=== PATIENT | female | born 1935 | race Caucasian/White ===

== ENCOUNTER 2019-11-14 13:32 | Outpatient (CLI) | payer MEDICARE, OTHER | END 2019-11-14 13:33 | disposition critical access hospital (66) | LOC: EMS 13:32 | PROVIDERS: ATTEND Surgery | DX: R41.82 Altered mental status, unspecified (principal); R51 Headache; W06.XXXA Fall from bed, initial encounter; Z91.81 History of falling; Y92.003 Bedroom of unspecified non-institutional (private) residence as the place of occurrence of the external cause; Z79.02 Long term (current) use of antithrombotics/antiplatelets | CPT/HCPCS: A0425; A0429 ==

== ENCOUNTER 2019-11-14 14:04 | Emergency (ER) | payer MEDICARE, OTHER ==
[2019-11-14] MEDS ORDERED: ACETAMINOPHEN 325 MG TABLET PO STA (14:26)
--- NOTE | 2019-11-14 14:27 | ED Physician Documentation ---
PD HPI MAJOR TRAUMA - Stated complaint Stated Complaint: FALL - Chief complaint Chief Complaint: Trauma Hd/Nk - History obtained from History obtained from: Patient, Family (daughter), EMS - History of Present Illness Mechanism of injury: Fell Timing - onset: Today (pt fell OOB at approx 0330 am, hit her ehad family got her back into bed today noticed a change in MS compared to yestreday pt c/o JAVIER neck pain abd pain and back. she is able to answer questions. pt family told EMS that she has had a decline in mental status past 2 weeks, pt recently moved in with family from [place]. pt state she has to urinate but is unable to) Injury(ies) location: Neck, Back, Left Lower Extremity (both feet but with bruising dorsum left foot more than right.). No: Head Associated symptoms: Seizures, Weakness (generalized for 2 weeks, with some falls. She says lost balance and felt onset of falling when getting up to bathroom. Fell backward. Does remember it.). No: LOC, AMS, Paresthesias Contributing factors: Anticoagulated (Plavix). No: Intoxicated Similar symptoms before: No diagnosis (daughter says some confusion and general weakness. No focal weakness.) Recently seen: Clinic (2 1/2 weeks ago at PMD visit; had new med started, escitalopram.) Review of Systems Constitutional: denies: Fever, Chills, Myalgias Nose: denies: Rhinorrhea / runny nose, Congestion Throat: denies: Sore throat Respiratory: denies: Cough GI: denies: Abdominal Pain, Nausea, Vomiting, Diarrhea Skin: denies: Abrasion (s), Laceration (s) PD PAST MEDICAL HISTORY - Past Medical History Past Medical History: Yes Cardiovascular: Hypertension, Coronary artery disease Neuro: TIA GI: Diverticulitis - Past Surgical History Past Surgical History: No - Present Medications Home Medications: Ambulatory Orders Medication Instructions Recorded Confirmed Amlodipine Besylate [Norvasc] 10 mg PO DAILY 11/14/19 11/14/19 Atorvastatin Calcium 20 mg PO DAILY PM 11/14/19 11/14/19 Cephalexin [Keflex] 500 mg PO TID #15 capsule 11/14/19 Clopidogrel [Plavix] 75 mg PO DAILY 11/14/19 11/14/19 Escitalopram [Lexapro] 10 mg PO DAILY 11/14/19 11/14/19 Lisinopril [Zestril] 10 mg PO DAILY 11/14/19 11/14/19 Metoprolol Tartrate [Lopressor] 50 mg PO BID 11/14/19 11/14/19 Nitroglycerin [Nitrostat] 0.4 mg SL Q5MIN PRN MDD x3 11/14/19 11/14/19 Nystatin Cream [Mycostatin Cream] 1 applic TOP BID #15 g 11/14/19 - Allergies Allergies/Adverse Reactions: Allergies Allergy/AdvReac Type Severity Reaction Status Date / Time ciprofloxacin [From Cipro] Allergy Rash Verified 11/14/19 15:05 codeine Allergy Unknown Verified 11/14/19 15:05 diazepam [From Valium] Allergy Nausea Verified 11/14/19 15:05 erythromycin base Allergy Unknown Verified 11/14/19 15:05 lentils Allergy Unknown Verified 11/14/19 15:05 Penicillins Allergy Unknown Verified 11/14/19 14:42 antibiotics Allergy Unknown Uncoded 11/14/19 15:05 antihistamines Allergy Unknown Uncoded 11/14/19 15:05 - Social History Does the pt smoke?: No Smoking Status: Never smoker Does the pt drink ETOH?: No Does the pt have substance abuse?: No - POLST Patient has POLST: Yes PD ED PE NORMAL - Vitals Vital signs reviewed: Yes - General General: Alert and oriented X 3, No acute distress, Well developed/nourished - HEENT HEENT: Atraumatic, Moist mucous membranes, Pharynx benign - Neck Neck: Supple, no meningeal sign, No adenopathy, Other (tender at upper thoracic spine paralumbar. ) - Cardiac Cardiac: RRR, No murmur - Respiratory Respiratory: No respiratory distress, Clear bilaterally, Other (no chestwall tnerdesss) - Abdomen Abdomen: Normal bowel sounds, Soft, Non tender, Non distended - Female Female : Deferred - Rectal Rectal: Deferred - Back Back: No CVA TTP - Derm Derm: Normal color, Warm and dry, Other (crural skin with demarcated reddened rash in inguinal and perrectal skin folds. No skin breakdown. Appearance c/w candidal yeast. ) - Extremities Extremities: Other (dorsum of left foot mostly showed some swelling and tenderness. Swelling is green/purple colored. ) - Neuro Neuro: Alert and oriented X 3, No motor deficit, No sensory deficit, Normal speech Results - Vitals Vitals: Vital Signs - 24 hr 11/14/19 11/14/19 11/14/19 14:04 15:07 15:30 Temperature 36.5 C Heart Rate 54 L 54 L 49 L Respiratory 16 14 15 Rate Blood Pressure 155/75 H 141/64 H 153/62 H O2 Saturation 98 100 98 11/14/19 11/14/19 11/14/19 16:00 16:30 17:00 Temperature Heart Rate 47 L 58 L 49 L Respiratory 17 16 18 Rate Blood Pressure 142/81 H 106/84 H 146/64 H O2 Saturation 99 98 100 Oxygen O2 Source Room air - Labs Labs: Laboratory Tests 11/14/19 11/14/19 11/14/19 14:15 14:15 16:37 WBC 8.7 RBC 5.37 Hgb 15.0 Hct 46.3 MCV 86.2 MCH 27.9 MCHC 32.4 RDW 13.7 Plt Count 264 MPV 9.4 Neut # (Auto) 5.8 Lymph # (Auto) 2.0 [place] # (Auto) 0.8 Eos # (Auto) 0.1 Baso # (Auto) 0.0 Absolute Nucleated RBC 0.00 Nucleated RBC % 0.0 Sodium 139 Potassium 4.2 Chloride 104 Carbon Dioxide 26 Anion Gap 9.0 BUN 22 H Creatinine 1.0 Estimated GFR (MDRD) 53 L Glucose 119 H Calcium 9.6 Total Bilirubin 1.1 H AST 26 ALT 25 Alkaline Phosphatase 96 Total Protein 7.8 Albumin 3.8 Globulin 4.0 Albumin/Globulin Ratio 1.0 Lipase 71 H Urine Color YELLOW Urine Clarity CLOUDY Urine pH 5.5 Ur Specific [place] 1.025 Urine Protein NEGATIVE Urine Glucose (UA) NEGATIVE Urine Ketones NEGATIVE Urine Occult Blood NEGATIVE Urine Nitrite POSITIVE H Urine Bilirubin NEGATIVE Urine Urobilinogen 0.2 (NORMAL) Ur Leukocyte Esterase TRACE H Urine RBC 0-5 Urine WBC 11-25 H Ur Squamous Epith Cells FEW Squamous Urine Bacteria Many H Ur Microscopic Review INDICATED Urine Culture Comments INDICATED - Rads (name of study) head CT Radiology: Prelim report reviewed (no acute bleeding), See rad report neck CT Radiology: Prelim report reviewed (prior superior endplate compression fx T1.), See rad report trunk CT Radiology: Prelim report reviewed (no acute processes.), See rad report feet xrays Radiology: Prelim report reviewed, Discussed with rads, EMP read contemporaneously, See rad report PD MEDICAL DECISION MAKING - ED course Complexity details: reviewed results (no noted acute fractures. She can move and turn okay.), considered differential (had onset of balance issues and falling more the past 2 weeks, which times with onset new Rx. ), d/w patient, d/w family (daughter) Departure - Departure Disposition: 01 Home, Self Care Clinical Impression: Medication side effect, Tinea cruris Fall from slip, trip, or stumble Qualifiers: Encounter type: initial encounter Qualified Code(s): W01.0XXA - Fall on same level from slipping, tripping and stumbling without subsequent striking against object, initial encounter UTI (urinary tract infection) Qualifiers: Urinary tract infection type: acute cystitis Hematuria presence: without hematuria Qualified Code(s): N30.00 - Acute cystitis without hematuria Condition: Stable Record reviewed to determine appropriate education?: Yes Instructions: ED UTI Cystitis Female Follow-Up: Isela Felipe ARNP [Primary Care Provider] - Prescriptions: Cephalexin [Keflex] 500 mg PO TID #15 capsule Nystatin Cream [Mycostatin Cream] 1 applic TOP BID #15 g Comments: Stay well-hydrated. There is signs of some urinary tract infection so we can go with cephalexin 3 times a day for 5 days. For the rash in the groin area, use nystatin antifungal cream twice daily and apply some A&E ointment over it. That should help clear that up. Regarding the altered mentation and weakness, I am inclined to think it is the S-Citalopram that she is just started. I would discontinue that and see how much improvement there is. You could also make an argument for stopping the atorvastatin cholesterol medicine as sometimes I will have some cognitive impact as well. Follow-up with your primary care if not improved over the next few days. For your pains from falling, I would suggest Tylenol 500 mg 4 times a day for the next 4 to 5 days just regularly and then to as needed. Discharge Date/Time: 11/14/19 17:37
[2019-11-14 14:38] LABS: BASOPHILS % (AUTO) 0.5 %; EOSINOPHILS # (AUTO) 0.1 10^3/uL (0.0-0.7); EOSINOPHILS % (AUTO) 0.7 %; LYMPHOCYTES % (AUTO) 22.8 %; MEAN CORPUSCULAR HEMOGLOBIN 27.9 pg (27.0-31.0); MEAN CORPUSCULAR HGB CONC 32.4 g/dL (32.0-36.0); MEAN CORPUSCULAR VOLUME 86.2 fL (81.0-99.0); MEAN PLATELET VOLUME 9.4 fL (7.9-10.8); MONOCYTES # (AUTO) 0.8 10^3/uL (0.0-1.0); MONOCYTES % (AUTO) 8.9 %; NEUTROPHILS # (AUTO) 5.8 10^3/uL (1.5-6.6); NEUTROPHILS % (AUTO) 66.6 %; PLT - PLATELET COUNT 264 10^3/uL (130-450); RED BLOOD COUNT 5.37 10^6/uL (4.20-5.40); RED CELL DISTRIBUTION WIDTH 13.7 % (12.0-15.0); WHITE BLOOD COUNT 8.7 x10^3/uL (4.8-10.8)
[2019-11-14 14:44] LABS: ALBUMIN 3.8 g/dL (3.2-5.5); BILIRUBIN,TOTAL 1.1 mg/dL (0.2-1.0); CALCIUM 9.6 mg/dL (8.5-10.3); TOTAL PROTEIN 7.8 g/dL (6.7-8.2)
--- NOTE | 2019-11-14 15:22 | CT Report ---
Reason: fall with struck head; on Plavix Procedure Date: 11/14/2019 Accession Number: [id number] / [id number] Procedure: CT - HEAD WO CPT Code: Final Report FULL RESULT: EXAM: CT HEAD EXAM DATE: 11/14/2019 03:07 PM. CLINICAL HISTORY: Fall with struck head; on Plavix. COMPARISON: None. TECHNIQUE: Multiaxial CT images were obtained from the foramen magnum to the vertex. Reformats: Sagittal and coronal. IV contrast: None. In accordance with CT protocol optimization, one or more of the following dose reduction techniques were utilized for this exam: automated exposure control, adjustment of mA and/or KV based on patient size, or use of iterative reconstructive technique. FINDINGS: Parenchyma: There is moderate nonfocal. Ventricular white matter hypodensity. There is no midline shift or mass-effect. Negative for acute intracranial hemorrhage. Extraaxial Spaces: No subdural or epidural collections identified. Ventricles: Normal in size and position. Sinuses and Orbits: Imaged paranasal sinuses, orbits, and mastoids show no significant abnormality. Bones: No evidence of fracture or calvarial defect. Other: None. IMPRESSION: 1. Negative for an acute or focal intracranial abnormality. 2. Moderate nonfocal white matter disease. 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 RADIA
--- NOTE | 2019-11-14 15:23 | XRAY Report ---
Reason: fall with feet pains Procedure Date: 11/14/2019 Accession Number: [id number] / [id number] Procedure: XR - Foot 2 View BILAT CPT Code: Final Report FULL RESULT: EXAMS: 1. Right Foot Radiography 2. Left Foot Radiography EXAM DATE: 11/14/2019 03:08 PM. CLINICAL HISTORY: Fall with feet pains. Fall with pain both feet. Bruising top of bilateral feet. COMPARISON: None. TECHNIQUE: 2 views each foot. FINDINGS: Right: Bones: No fractures or bone lesions. Joints: Normal. No subluxations. Soft Tissues: Bilateral dorsum forefoot soft tissue swelling or contusion. Left: Bones: Normal. No fractures or bone lesions. Joints: Normal. No subluxations. Soft Tissues: Normal. No soft tissue swelling. IMPRESSION: Negative for fracture. RADIA
--- NOTE | 2019-11-14 15:24 | CT Report ---
Reason: fall with injury to back/post ribs Procedure Date: 11/14/2019 Accession Number: [id number] / [id number] Procedure: CT - CHEST WO CPT Code: Final Report FULL RESULT: EXAM: CT CHEST EXAM DATE: 11/14/2019 02:53 PM. CLINICAL HISTORY: Acute pain due to trauma. COMPARISONS: None. TECHNIQUE: Routine helical CT imaging was performed through the chest. IV contrast: None. Reconstructions: Coronal and sagittal. In accordance with CT protocol optimization, one or more of the following dose reduction techniques were utilized for this exam: automated exposure control, adjustment of mA and/or KV based on patient size, or use of iterative reconstructive technique. FINDINGS: Lungs/Pleura: No consolidation, effusion, or pneumothorax. Minor subpleural scarring along the medial right lower lobe is seen. Minor bronchiectasis and endobronchial nodular change in the right upper lobe is seen measuring up to 5 mm (image 118/3 and image 135/3) favoring postinflammatory change. Mediastinum: Heart size is normal with no pericardial effusion or adenopathy. Extensive calcified coronary artery disease and postoperative changes related to the aortocoronary bypass is seen. Bones: The visualized spine demonstrates degenerative changes and multilevel anterior flowing osteophyte formation consistent with diffuse idiopathic skeletal hyperostosis (DISH). Age-indeterminate minor compression deformity involving the superior endplate of T1 is seen.. Visualized Abdomen: Post cholecystectomy clips are seen in the right upper quadrant region. Scattered calcifications are seen in the spleen consistent with old granulomatous disease. No masses. Small cyst in the upper pole left kidney is seen. Other: None. IMPRESSION: 1. Minor T1 superior endplate compression deformity, age indeterminate. Otherwise, no acute osseous or cardiopulmonary abnormality demonstrated. Diffuse idiopathic skeletal hyperostosis changes are present (rigid spine). If there is high suspicion for underlying additional spine pathology MRI may be helpful in further evaluation. 2. No acute cardiopulmonary abnormality identified. Tiny endobronchial right upper lobe pulmonary nodules measuring up to 5 mm and minor bronchiectasis changes seen, suspect postinflammatory. If patient is high risk for lung cancer then repeat CT in 12 months could be considered for further evaluation. [facility]
--- NOTE | 2019-11-14 15:25 | CT Report ---
Reason: fall with neck pain Procedure Date: 11/14/2019 Accession Number: [id number] / [id number] Procedure: CT - CERVICAL SPINE WO CPT Code: Final Report FULL RESULT: EXAM: CT CERVICAL SPINE WITHOUT IV CONTRAST DATE: 11/14/2019. HISTORY: Pale. Neck pain. COMPARISONS: None. TECHNIQUE: Thin-section axial images were acquired of the cervical spine without contrast. Post-processing: Coronal and sagittal reformats. Other: None. In accordance with CT protocol optimization, one or more of the following dose reduction techniques were utilized for this exam: automated exposure control, adjustment of mA and/or KV based on patient size, or use of iterative reconstructive technique. FINDINGS: Alignment: 1.5 mm degenerative retrolisthesis of C4 on C5. 2 mm degenerative anterolisthesis of C7 on T1, secondary to facet joint degenerative disease and degenerative disk disease. Bones: Old T1 mid and anterior vertebral body compression fracture. No acute abnormality. Disks: Moderate narrowing at C4-C5 posterior at C5-C6, C6-C7, and mild narrowing at C7-T1 and T1-T2. Facets: Narrowing and spurring at all levels bilaterally. Other: Normal prevertebral soft tissues. The lung apices are clear. Atherosclerosis at the carotid bifurcation bilaterally. IMPRESSION: No acute abnormality. Old T1 vertebral body compression fracture. First degree degenerative retrolisthesis of C4 on C5 and anterolisthesis of C7 on T1. Multilevel degenerative disk disease and facet joint degenerative disease. Bilateral carotid bifurcation atherosclerosis. RADIA
--- NOTE | 2019-11-14 15:27 | CT Report ---
Reason: fall Procedure Date: 11/14/2019 Accession Number: [id number] / [id number] Procedure: CT - Abdomen/Pelvis WO CPT Code: Final Report FULL RESULT: EXAM: CT ABDOMEN AND PELVIS (CT KUB) EXAM DATE: 11/14/2019 02:53 PM. CLINICAL HISTORY: Acute pain due to trauma. COMPARISONS: None. TECHNIQUE: Routine axial helical CT imaging was performed through the abdomen and pelvis without IV contrast. Reconstructions: Coronal and sagittal. In accordance with CT protocol optimization, one or more of the following dose reduction techniques were utilized for this exam: automated exposure control, adjustment of mA and/or KV based on patient size, or use of iterative reconstructive technique. FINDINGS: Lung Bases: See separate report. Right Kidney/Ureter: No stones, hydronephrosis, or hydroureter. No perinephric fat stranding. Left Kidney/Ureter: No stones, hydronephrosis, or hydroureter. No perinephric fat stranding. Tiny cyst in the upper pole left kidney is seen. Other Solid Organs: Noncontrast images of the solid organs are grossly unremarkable. A few tiny splenic cysts likely due to old granulomatous disease is seen. Gallbladder/Bile Ducts: Cholecystectomy changes are seen. There is no biliary dilation. Peritoneal Cavity: There is moderate predominantly sigmoid diverticulosis without evidence of diverticulitis. There is no obstruction or ileus. No free fluid or free air. Pelvic Organs: No bladder stones or wall thickening. Noncontrast images of the visualized pelvic organs are unremarkable. Vasculature: Calcified atherosclerotic disease of the aorta is seen without aneurysm or other significant vascular abnormality. Other: Bones are osteopenic. No fractures or bone lesions. Degenerative scoliotic changes of the lower spine is seen. IMPRESSION: 1. No acute osseous or intra-abdominal abnormality identified. 2. Moderate colonic diverticulosis without diverticulitis. RADIA
[2019-11-14] MEDS ORDERED: FLUCONAZOLE 100 MG TABLET PO STA (16:33)
[2019-11-14 16:54] LABS: BILIRUBIN,URINE NEGATIVE (NEGATIVE); GLUCOSE, URINE (UA) NEGATIVE (NEGATIVE); KETONES,URINE (UA) NEGATIVE (NEGATIVE); LEUKOCYTE ESTERASE, URINE TRACE (NEGATIVE); NITRITE,URINE POSITIVE (NEGATIVE); OCCULT BLOOD,URINE NEGATIVE (NEGATIVE); PH,URINE 5.5 PH (5.0-7.5); PROTEIN,URINE NEGATIVE (NEGATIVE); UROBILINOGEN,URINE 0.2 (NORMAL) E.U./dL (NORMAL)
[2019-11-14 17:03] LABS: CLARITY,URINE CLOUDY (CLEAR)
[2019-11-14 17:13] VITALS: BP 146/64
[2019-11-14] MEDS ORDERED: cephALEXin 250 MG CAPSULE PO STA (17:19)
[2019-11-14 17:24] LABS: BACTERIA,URINE Many /HPF (None Seen); RBC,URINE 0-5 /HPF (0-5); SQUAMOUS EPITHELIAL CELL,UR FEW Squamous (<= Few)
== END 2019-11-14 17:37 | disposition home or self-care (01) ==
LOC: ED 14:04
DX: R26.81 Unsteadiness on feet (principal); T43.225A Adverse effect of selective serotonin reuptake inhibitors, initial encounter; N30.00 Acute cystitis without hematuria; B35.6 Tinea cruris; I10 Essential (primary) hypertension; Z79.02 Long term (current) use of antithrombotics/antiplatelets
CPT/HCPCS: 36415; 51701; 70450; 71250; 72125; 73620; 74176; 80053; 81001; 83690; 85025; 87086; 99284; A9270; 81003; 87077; 87181

== ENCOUNTER 2019-12-19 10:50 | Outpatient (CLI) | payer MEDICARE, OTHER ==
--- NOTE | 2019-12-19 16:02 | CONSULTATION NOTE ---
Palliative Care Consultation - Referral Referring Provider: EDMOND Stewart Time of Visit: [id number] Referral setting: Home Referral Reason: Debility/Advanced Care planning - Information Sources Records reviewed: Previous records reviewed History/Review of Systems obtained from: Patient, Family (daughter/caregiver, Yessenia) Exam limitations: No limitations - History of Present Illness Brief History of Present Illness: This is an 84-year-old woman who is seen and evaluated within her home today for initial palliative care consultation due to her bedbound status, debility, and overall functional decline. Per the daughter's report the patient has had a general decline over the past 5 years. She was living independently within her home in [place] and both of the patient's daughters reside in [place] [facility]. The patient was just maintaining within place where she would have a caregiver who would attend to her when Wednesdays he would do shopping for her and general offset lithographic press operator. She is then started having a series of unfortunate events that has resulted in her increased debility. The patient sustained a fall within her bathroom approximately 1 year ago and since that time has had a more sharp decline in function. She then sustained a fall in October 2019 that required a welfare check as [employer] was unable to contact the patient and she was found down in her home for probably approximately 20 hours. She was admitted to the local hospital in [facility] and then was transitioned to a jail facility. The patient was then subsequently discharged to her daughter to then move in for more oversight and care on [facility] in [place]. When the patient moved in with her daughter in [place] she was initally able to ambulate with a walker from the bedroom to the kitchen twice a day. The patient then sustained 2 falls in November 2019, one of which, resulted in an evaluation at [facility] emergency department after EMS was called. The daughter reports the patient fell out of bed prior to the EMS arriving and was circling on the floor indicative of possible psychosis. At the ER, imaging was performed and it was felt that the patient might of had some underlying psychosis due to her escitalopram which was initiated for depression resulting in altered mentation and weakness. She was also treated for urinary tract infection at that time. Her escitalpram was discontinued and psychosis like symptoms resolved but the patient continues with persistent weakness. At the present time she is unable to ambulate. She finds it difficult to sit up in bed. She does have a history of TIAs as well as a significant cardiac history for multiple myocardial infarctions with a history of bypass surgery.The patient is presently not working with any physical therapist. She is able to lift her buttocks off the bed to assist her daughter with changing. Prior to moving in with her daughter the patient was continent of bowel and bladder and now is incontinent of both. She does have some erythema to her bilateral buttocks as well as her left hip with no further evidence of skin breakdown. Overall the patient denies any reports of pain preventing her from ambulating. When she is trying to sit on the edge of the bed she reports that she feels like she is going to lose her balance. She reports that she is sleeping most of the day. No difficulty falling asleep and sleeping well through the night. Her appetite remains good. Her daughter does not eat meat and her diet has adjusted as such. The patient has a history of diverticulosis and avoids certain trigger foods including peas. She does however miss having a meat and will have meat substitutes presently with her daughter. Overall presently it appears that the patient has a good day every other day. On her bad days it seems that this is more attributable to her energy and has more of a depressed mood. At those times she reports that she feels "pressed down" with her spirits. She is not able to pinpoint any particular thing that is wrong during her bad days. On her bad days, both the patient and her daughterYessenia reports that she has some short-term memory deficits at that time. But typically the patient is sharp regarding her memory. 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 She had been residing independently in [facility] within her home prior to moving in with her daughter, Yessenia in late October 2019. As it was becoming increasingly difficult for the patient to care for herself she had actually sent her cat, Jeannie to live with her daughter Yessenia and subsequently the patient herself followed her cat to [place], [place]. The patient is . She has 2 daughters, Latrice and Yessenia. It was becoming increasingly clear that the patient was having decline in her ability to care for herself despite her daughters prompting to seek more assistance. In till her recent hospitalization in October 2019 that resulted in her having to relocate. Family History - Family History Family History: Mother: , Father: Medications/Allergies - Medications Home Medications: Ambulatory Orders Medication Instructions Recorded Confirmed Amlodipine Besylate [Norvasc] 10 mg PO DAILY 11/14/19 12/19/19 Atorvastatin Calcium 20 mg PO DAILY PM 11/14/19 12/19/19 Clopidogrel [Plavix] 75 mg PO DAILY 11/14/19 12/19/19 Lisinopril [Zestril] 10 mg PO DAILY 11/14/19 12/19/19 Metoprolol Tartrate [Lopressor] 50 mg PO BID 11/14/19 12/19/19 Nitroglycerin [Nitrostat] 0.4 mg SL Q5MIN PRN MDD x3 11/14/19 12/19/19 Acetaminophen 500 mg PO QID PRN 12/19/19 12/19/19 Ciclopirox/Ure/Camph/Menth/Euc 1 applic TP DAILY MDD apply to 12/19/19 12/19/19 [Ciclopirox 8% Treatment Kit] affected nails - Allergies Allergies/Adverse Reactions: Allergies Allergy/AdvReac Type Severity Reaction Status Date / Time ciprofloxacin [From Cipro] Allergy Rash Verified 11/14/19 15:05 codeine Allergy Unknown Verified 11/14/19 15:05 diazepam [From Valium] Allergy Nausea Verified 11/14/19 15:05 erythromycin base Allergy Unknown Verified 11/14/19 15:05 lentils Allergy Unknown Verified 11/14/19 15:05 Penicillins Allergy Unknown Verified 11/14/19 14:42 antibiotics Allergy Unknown Uncoded 11/14/19 15:05 antihistamines Allergy Unknown Uncoded 11/14/19 15:05 Review of Systems - Constitutional Constitutional: reports: Fatigue, Weight loss (noted weight loss per daughter presently 164lb and typically has been in 200s most of her adult life). denies: Fever - Eyes Eyes: denies: Blurred vision, Vision loss - Ears, Nose & Throat Ears, Nose & Throat: denies: Hearing loss, Dry mouth - Cardiovascular Cardiovascular: denies: Palpitations, Chest pain - Respiratory Respiratory: denies: Cough, Wheezing - Gastrointestinal Gastrointestinal: reports: Change in bowel habits (no longer contient with bowels and typically has two bowel movements daily that are soft and well formed), Good appetite. denies: Abdominal pain, Constipation, Nausea, Vomiting - Genitourinary Genitourinary: reports: Incontinence. denies: Dysuria - Musculoskeletal Musculoskeletal: reports: Muscle weakness, Joint pain (intermittent left knee), Assistive devices - Integumentary Integumentary: reports: Rash (b/l buttocks and left hip), Other (bruises to LE) - Neurological Neurological: reports: General weakness. denies: Headache, Memory problems - Psychiatric Psychiatric: reports: Depression - Hematologic/Lymphatic Hematologic/Lymphatic: denies: Recurrent infections - All Other Systems All Other Systems: reports: Reviewed and negative Physical Exam - Vital Signs Temperature: 36.3 C Pulse Rate: 58 O2 Saturation: 98 (on RA at rest) Blood Pressure: 109/63 (left wrist cuff) - Physical Exam General Appearance: positive: No acute distress, Alert, Other (resting in bed) Eyes Bilateral: positive: Normal inspection ENT: positive: No signs of dehydration, Other (poor dentition) Neck: positive: No JVD, Trachea midline Cardiovascular: positive: Regular rate & rhythm, No murmur, Bradycardia Respiratory: positive: No respiratory distress, Breath sounds nml, Other (good air movement throughout). negative: Rales Abdomen: positive: Non-tender, Soft, Nml bowel sounds. negative: Guarding, Distended Skin: positive: Bruising (resolving ecchymosis to dorsal aspect of right foot and left addison), Pressure wound (blanchable erythema to bilateral buttocks and left hip with skin intact), Other (Thick, enlongagated great toenails consistent with onychomycosis bilaterally) Extremities: positive: Full ROM, No pedal edema, Other (Intermittent left knee pain without erythema or effusion noted on evaluation) Neurologic/Psychiatric: positive: Oriented x3, Mood/affect nml (BLE 3/5 strength; BUE 4/5 strength), Weakness. negative: Facial droop, Unintelligible speech Palliative Care - POLST Patient has POLST: Yes POLST Status: DNR, Selective Treatment Pain: Pain unchanged (intermittent left knee pain that resolves with PRN tylenol administration) Tiredness/Fatigue: None Drowsiness/Sedation: Moderate (4-6) Nausea: None Anorexia: None Dyspnea: None Depression: Mild (1-3) Anxiety: None Feelings of wellbeing/Perceived Quality of Life: Worsening (Feels like she is losing her "personage.") Constipation: No Performance Status: The patient has had a functional decline over the last 5 years culminating in an acute decline in the last 2 months. The patient was living independently and is now residing with her daughter, Yessenia as her primary caregiver. The patient has lost the ability to be able to ambulate using an assistive device or with her daughter. She has generalized weakness to her bilateral lower extremities. She has a history of frequent falls. She continues to be able to feed herself. She was previously continent of bowel and bladder prior to her hospitalization in October 2019 and is now incontinent of both bowel and bladder. She denies any coughing or dysphasia during meals. PPS core 30% - Palliative Care Discussion: The patient has had a steady functional decline in the last 5 years that has significantly increased in the last 2 months resulting in her being bedbound within her daughter's home. In exploring the patient's thoughts and feelings regarding her current health state she feels as if she is incapacitated and this is disturbing to her. She feels very confined within her daughter's home despite reporting she is receiving wonderful care by her daughter. She feels that she is losing herself as a person as she was residing independently within her home as of October 2019. She reluctantly admits that she was just "skating by" while she was residing in her home independently as she required more assistance and care than she was willing to accept by her family and her community. Patient reports that she has a living will that daughter does not have at the present time. She denies that she presently has a healthcare agent he would be able to speak for herself if she was incapacitated and unable to state her wishes in regards to her medical care. BRENNAN reviewed and explored with patient and daughter, Yessenia at the present time patient wishes to be a DN AR with limited interventions, antibiotic treatment for symptom management with no tube feeding by artificial support. At the present time, the patient wishes to look at interventions and weighing benefits versus burdens and regarding treatment options. Presently the patient's main goal is to be able to sit up on her own. She denies being afraid of dying. When exploring this further she reports that she wrote an astrology book and sees herself with belief of missed a system where the universe is interconnected. She sees that there are people waiting for her on the other side when she does . She does report some depressive symptoms when she is having a bad day that she can overcome with support. Impression and Recommendations - Palliative Care Impression: This is a enrique 84-year-old woman who has had a significant functional decline and loss of mobility within the last 2 months who remains cognitively intact. Potential underlying cause for her generalized weakness could be to persistent TIAs or a CVA given the patient's significant cardiac history. Palliative care to continue to build rapport, establish goals of care, provide symptom management and anticipatory guidance. Recommendations/Counseling Done: 1. TIA with possible CVA. Patient continues with significant bilateral lower extremity weakness possibly due to persistent TIAs or underlying CVA. Patient is no longer able to ambulate and is bedbound. Patient would benefit from physical therapy services for bilateral upper extremity and lower extremity strengthening, fall prevention, equipment device training with the ultimate goal that the patient wishes to sit up on her own. Patient declines going to the hospital at the present time for her symptoms. Continue to monitor and provide support. 2. Protein malnutrition and declining functional status. Patient has had a significant weight loss in the last several months. Last weight obtained was 164 pounds per daughter's report. Continues to have a good appetite. Has had some loss of musculature due to her immobility and bedbound status. We will continue to monitor weight trends. Suggested obtainment of hospital bed and recommended [facility] for possible supply. 3.Left knee pain. Intermittent. No signs or symptoms of effusion. No recent fall in last month. Continue Tylenol 500 mg 4 times daily as needed for pain as patient has been responsive. 4. Coronary artery disease with history of PA. Chronic/Progressive. Supportive care. Continue secondary preventative measures with plavix and statin therapy. Consider discontinuation of statin therapy in the future given the patient's bedbound status and time to see continued benefit of therapy. 5. Risk for skin breakdown due to bedbound status and incontinence. Encouraged to turn and reposition every 2 hours. Provided calivin barrier cream to apply BID and as needed to affected skin areas for skin protection. 6. Onychomycosis. To bilateral great toes. Would benefit from podiatry evaluation but unable to see a manager cardiac cath given the patient's mobility and bedbound status and coronavirus pandemic. Start penlax nail lacquer apply to affected areas nightly until resolved and clean nails with alcohol every 7 days. 7. Advanced care planning. Begun exploring goals of care with patient and daughterYessenia today. Patient's primary goal is to be able to sit up in bed on her own which is likely achievable. POLST reviewed today and a new copy was performed with patient as DN AR with limited interventions. Both patient and daughter are aware that the POLST is fluid and can change based on the present circumstance if they so desire with weighing benefits versus burdens with understanding verbalized. Offered artificial stone applicator services but declined at this time. Supportive listening provided with normalization regarding intermittent depressive symptoms and will continue to monitor. Palliative care to continue to build rapport FACE TO FACE: It would be a taxing and considerable effort for the patient to leave her home given her bed bound status and increased exposure risk given the COVID/ pandemic and would benefit from home health physical therapy and occupational therapy services. Patient has significant bilateral lower extremity weakness as well as upper extremity weakness from TIA. The patient is no longer able to ambulate and is bedbound. She would benefit from upper extremity and lower extremity strengthening, evaluation for equipment with caregiver training within the home, fall prevention, and passive range of motion therapy. Time Spent: Total time spent 90 minutes with greater than 50% of this spent in counseling and coordination of care with patient and daughter Yessenia; examination of patient; review of medical records; exploring goals of care with explaination of palliative care philosophy; review symptom management and anticipatory guidance. disclaimer: The chart note was formulated using voice recognition technology and unfortunately sound alike errors may occur.
== END 2019-12-19 10:51 | disposition home or self-care (01) ==
LOC: PC 10:50
PROVIDERS: ATTEND Nurse Practitioner Family
DX: Z51.5 Encounter for palliative care (principal); R53.1 Weakness; G45.9 Transient cerebral ischemic attack, unspecified; R63.4 Abnormal weight loss; E46 Unspecified protein-calorie malnutrition; R32 Unspecified urinary incontinence; R15.9 Full incontinence of feces; M25.562 Pain in left knee; B35.1 Tinea unguium; I25.2 Old myocardial infarction; I25.10 Atherosclerotic heart disease of native coronary artery without angina pectoris; L89.321 Pressure ulcer of left buttock, stage 1; L89.311 Pressure ulcer of right buttock, stage 1; L89.221 Pressure ulcer of left hip, stage 1; I10 Essential (primary) hypertension; Z91.81 History of falling; Z79.899 Other long term (current) drug therapy; Z79.02 Long term (current) use of antithrombotics/antiplatelets; Z95.1 Presence of aortocoronary bypass graft; Z74.01 Bed confinement status; Z66 Do not resuscitate
CPT/HCPCS: 99345

== ENCOUNTER 2020-01-11 15:10 | Outpatient (CLI) | payer MEDICARE, OTHER ==
--- NOTE | 2020-01-11 16:05 | CONSULTATION NOTE ---
Palliative Care Follow Up - Referral Referring Provider: EDMOND Stewart Time of Visit: 3991-6246 Referral setting: Home Referral Reason: Debility/Calluses/Diarrhea/Weakness - Information Sources Records reviewed: Previous records reviewed History/Review of Systems obtained from: Patient, Family (daughter/caregiver, Yessenia) Exam limitations: No limitations - History of Present Illness Update Brief HPI Update: This is an 84-year-old woman who is seen and evaluated within her home with her daughter, Yessenia present for follow-up today for bedbound status, bicep pain, debility and diarrhea today. Seen with N95 with cover, goggles and gloves. The patient has had a general decline over the last 5 years. Prior to moving in with her daughterYessenia after sustaining a fall in October 2019 she was living independently within her home in [place]. She had two falls in November 2019 which resulted in an evaluation at [facility] ER due to possible psychosis. She was treated for a urinary tract infection at that time. She has not had resolution of her generalized weakness. She is being followed by [facility] for PT and OT. She has had some malasie and "feeling sick" that she can not pinpoint what is actually wrong with a symptom. Typically when she has the feeling of malaise she wishes to be left alone in her room and go to sleep. She is allowed to awaken independently she feels better after waking. With the patient and the daughter relay that she continues to have fluctuation in her good and bad days. Typically in the morning she will be bright in her demeanor but there seems to be more fluctuations of late. She has previously had treatment of depression in the past last being in her 20s but did not tolerate that medication and then again this year that resulted in an ER visit for possible psychosis when she was on escitalopram.The patient herself does report depressive symptoms but relays "what can you do about it" and she just carries on. She does report to pain in her bilateral biceps that she does not attribute to the exercises that his she has been performing that has been requested by physical therapy. The physical therapist has requested that she take thousand milligrams of Tylenol before therapy and that has been the only medication change and the daughter was wondering if this could be attributable to her reports of malaise. When working with PT she has been come dizzy when getting up on the edge of the bed, but reports that it will eventually pass. The patient has longstanding calluses to the outer aspects of both feet. In the past she has remove the calluses on her own independently. The daughter is presently covering the calluses with a bunion pad that has been cut out to relieve pressure. This is been working well. The daughter is also using zinc paste to the patient's sacrum and she has not had any skin breakdown. In the last month she has had diarrhea. The daughter used "Dr. Mota" and changed her mother's diet to a BRAT diet and there has been improvement in the frequency of stool and it is typically soft but the frequency is more sporadic. They plan to slowly introduce foods to see what the patient's tolerance can be. The next food will be to introduce cookies as the patient is missing this food in her palate right now. She does have a history of diverticulosis and is sensitive to foods. Patient has a past medical history of hypertension, coronary artery disease, [place], TIA, diverticulitis, incontinence, depression, gout, peripheral vascular disease, colon polyposis, CABG, hysterectomy. Social History - Living Situation Living arrangement: At home Living Situation: With family (daughter, Yessenia) Support System: The patient grew up in [place] and in [place]. She had been residing independently in [facility] within her home alone prior to moving in with her daughter, Yessenia in late October 2019. It was becoming increasingly difficult for the patient to care for herself. She has 2 daughters, Latrice and Yessenia. Her daughter Yessenia has been overseeing her care and reports that she will be caring for her mom "until the better end." The patient has also had ants in her bedroom and a few noted today in the bed. The daughter attributes this to having food at the bedside. There has been less movement of hands and given their denominational philosophies do not wish to kill the aunts through pesticide means and are looking for alternative measures. Medications/Allergies - Medications Home Medications: Ambulatory Orders Medication Instructions Recorded Confirmed Amlodipine Besylate [Norvasc] 5 mg PO DAILY 11/14/19 12/19/19 Clopidogrel [Plavix] 75 mg PO DAILY 11/14/19 12/19/19 Lisinopril [Zestril] 10 mg PO DAILY 11/14/19 12/19/19 Metoprolol Tartrate [Lopressor] 50 mg PO BID 11/14/19 12/19/19 Nitroglycerin [Nitrostat] 0.4 mg SL Q5MIN PRN MDD x3 11/14/19 12/19/19 Acetaminophen 500 mg PO QID PRN 12/19/19 12/19/19 Ciclopirox/Ure/Camph/Menth/Euc 1 applic TP DAILY MDD apply to 12/19/19 12/19/19 [Ciclopirox 8% Treatment Kit] affected nails Loperamide [Imodium] MDD NTE 8mg/day 01/11/20 Menthol [Biofreeze] MDD per package 01/11/20 Wheat Dextrin [Benefiber] MDD per package 01/11/20 - Allergies Allergies/Adverse Reactions: Allergies Allergy/AdvReac Type Severity Reaction Status Date / Time ciprofloxacin [From Cipro] Allergy Rash Verified 11/14/19 15:05 codeine Allergy Unknown Verified 11/14/19 15:05 diazepam [From Valium] Allergy Nausea Verified 11/14/19 15:05 erythromycin base Allergy Unknown Verified 11/14/19 15:05 lentils Allergy Unknown Verified 11/14/19 15:05 Penicillins Allergy Unknown Verified 11/14/19 14:42 antibiotics Allergy Unknown Uncoded 11/14/19 15:05 antihistamines Allergy Unknown Uncoded 11/14/19 15:05 Review of Systems - Constitutional Constitutional: reports: Fatigue, Weight loss. denies: Fever - Eyes Eyes: denies: Corrective lenses - Ears, Nose & Throat Ears, Nose & Throat: denies: Dry mouth - Cardiovascular Cardiovascular: reports: Chest pain (intermittent--last occurred 4 days ago), Decr. exercise tolerance. denies: Palpitations, Edema - Respiratory Respiratory: denies: Cough - Gastrointestinal Gastrointestinal: reports: Diarrhea (improved with BRAT diet), Good appetite, Other (bowel incontinence). denies: Abdominal pain, Abdominal distention, Vomiting - Genitourinary Genitourinary: reports: Incontinence - Musculoskeletal Musculoskeletal: reports: Muscle aches, Muscle weakness, Joint pain (left knee), Transfer issues - Integumentary Integumentary: reports: Other (bunion to left foot and calluses to both feet) - Neurological Neurological: reports: General weakness, Dizziness (positional that resolves). denies: Memory problems - Psychiatric Psychiatric: reports: Depression Physical Exam - Vital Signs Temperature: 36.1 C Pulse Rate: 56 O2 Saturation: 93 (on RA at rest) Blood Pressure: 112/61 (right wrist cuff, lying down) - Physical Exam General Appearance: positive: No acute distress, Alert, Other (resting in bed) Eyes Bilateral: positive: Normal inspection ENT: positive: Other (poor dentition) Neck: positive: Trachea midline Cardiovascular: positive: No murmur, Bradycardia Respiratory: positive: No respiratory distress, Breath sounds nml Abdomen: positive: Non-tender, Soft, Nml bowel sounds. negative: Distended Skin: positive: Other (Thick, enlongagated great toenails consistent with onychomycosis bilaterally; Left foot medially blanchable erythema at base of MTP of great toe consistent with bunion; pronounced, thickened callusous noted to MTP on lateral aspect of left and right 5th toes) Extremities: positive: No pedal edema, Other (intermittent pain to left knee without effusion or warmth to palpation; tenderness to palpation to bilateral biceps) Neurologic/Psychiatric: positive: Oriented x3, Mood/affect nml, Weakness Comments/Other: Sitting up: 98/66, HR 70 Palliative Care - POLST Patient has POLST: Yes POLST Status: DNR, Selective Treatment Pain: Pain unchanged (intermittent left knee pain) Sleep: Sleeps well Constipation: No Performance Status: The patient is nonambulatory and is bedbound at the present time. She has generalized weakness to her bilateral lower extremities. She has a history of frequent falls. She continues to be able to self feed. She is incontinent of bowel and bladder. PPS 30% - Palliative Care Discussion: The patient has had a steady functional decline in the last 5 years that has significantly increased in the last 3 months. She continues to be bedbound within her daughter's home with her daughter as her primary caregiver. She is having more frequent bouts of malaise and "feeling sick" that she is unable to articulate further. She is optimistic that she wishes to be able to sit up in bed. She is presently working with PT and OT from [facility]. She does have a history of depressive symptoms but has been unable to tolerate administration of antidepressants and is quite sensitive to medications. She is hesitant to attempt any new alternative antidepressant therapy at this time. When exploring if she feels upset regarding her present circumstances she reports that she will become frustrated but she is not angry. She replies "what can you do?". Due to recent episodes of intermittent chest pain likely representing angina given the patient's strong cardiac history reviewed if she wished to go to the hospital for further evaluation and she adamantly declined. She reports that she wishes to stay at home and to be with her family. Impression and Recommendations - Palliative Care Impression: This is an 84-year-old woman who has had significant functional decline and loss of mobility who remains cognitively intact. Continue to question if she potentially had a CVA that resulted in her bedbound status however, the patient does not wish for diagnostics or interventions. She is very sensitive to medications and has a list of medications that she has had sensitivities or side effects to. She does have some underlying depression but is hesitant to try a new antidepressant. Palliative care to continue to build rapport, establish goals of care, provide symptom management anticipatory guidance. Recommendations/Counseling Done: 1. Coronary artery disease with history of [place]. Chronic. Progressive. Concerns for intermittent angina. Patient has as needed nitroglycerin to administer. Consider addition of routine vasodilator if symptoms persist. Continue secondary preventive measures with Plavix and metoprolol. Given patient's bedbound status and time to see benefit discussed with patient and daughter discontinuation of atorvastatin and in agreement for discontinuation. 2. Generalized weakness. Unknown and a lot of etiology but likely due to potential CVA given the patient's history of TIAs. She continues to be bedbound. She is working with home health physical therapy and occupational therapy services. Discussed with daughter risk vs benefit of Lovenox injections and verbalized understanding not to proceed with re-initiation of injections. Continue to monitor and provide support. 3. Loose stools. Patient has a history of diverticulosis. Improvement of loose stools with BRAT diet. Discussed with daughter that does not need to be implemented if looking at patient's quality of life however, the patient and daughter wish to proceed and reintroduce foods and a food challenge. Recommended use of routine Benefiber to bulk stool and may use Imodium 2 mg to slow peristalsis not to exceed 8 mg in a day. Continue to encourage oral hydration. 4. Bicep pain and left knee pain. No recent falls. Given the patient's sensitivity to multiple medications I am hesitant to initiate opioid therapy as well as introduction of NSAIDs as the patient is on Plavix. Would consider initiation of opioid therapy if persistent pain after trial of Biofreeze to apply topically to affected areas to follow the package inserts. To continue as needed Tylenol as this is been effective for the patient's pain. 5. Left great toe bunion and calluses to bilateral lateral 5th toes. These are long standing issues at at risk for pressure ulcers. Continue to have the daughter apply bunion pads around the sites for protection and consider colquitt board to file calluses in the future that may be preformed at home. Also recommended obtainment of heel protectors for better protection while the patient is in bed to prevent direct pressure to vulnerable points. 6. Dizziness. Multifactorial with noted hypotension on sitting and deconditioning. Given the medications for HTN will decrease amlodipine from 10mg to 5mg daily and continue to monitor response and danna according to patient's response.Consider addition of TEDs hose for reduction of symptoms. Time Spent: Total time spent 50 minutes with greater than 50% of this spent in counseling and coordination of care with patient and daughter Yessenia; examination of patient; review of medications and interventions with understanding verbalized; review of symptom management and anticipatory guidance. disclaimer: The chart note was formulated using voice recognition technology and unfortunately sound alike errors may occur.
== END 2020-01-11 15:11 | disposition home or self-care (01) ==
LOC: PC 15:10
PROVIDERS: ATTEND Nurse Practitioner Family
DX: Z51.5 Encounter for palliative care (principal); R53.81 Other malaise; R19.7 Diarrhea, unspecified; M79.18 Myalgia, other site; M25.562 Pain in left knee; R53.1 Weakness; I25.10 Atherosclerotic heart disease of native coronary artery without angina pectoris; I25.2 Old myocardial infarction; R42 Dizziness and giddiness; I95.9 Hypotension, unspecified; M21.612 Bunion of left foot; L84 Corns and callosities; Z79.899 Other long term (current) drug therapy; Z79.02 Long term (current) use of antithrombotics/antiplatelets; Z74.01 Bed confinement status; Z87.440 Personal history of urinary (tract) infections; Z86.73 Personal history of transient ischemic attack (TIA), and cerebral infarction without residual deficits; Z91.81 History of falling; Z66 Do not resuscitate
CPT/HCPCS: 99349

== ENCOUNTER 2020-02-01 12:28 | Outpatient (CLI) | payer MEDICARE, OTHER ==
--- NOTE | 2020-02-01 15:07 | CONSULTATION NOTE ---
Palliative Care Follow Up - Referral Referring Provider: EDMOND Stewart Time of Visit: [id number] Referral setting: Home Referral Reason: Debility/Bowel Changes/Weakness - Information Sources Records reviewed: Previous records reviewed History/Review of Systems obtained from: Patient, Family (daughter, Yessenia) Exam limitations: No limitations - History of Present Illness Update Brief HPI Update: This is an 84-year-old woman who was seen and evaluated today in her home with her daughter, Yessenia present for a follow-up today regarding her bowel changes, extremity pain, corns to her feet, and generalized weakness and debility. Seen with and 95 with cover, goggles, and gloves. The patient has had a general decline over the last 5 years. Prior to moving with her daughterYessenia after stating a fall in October 2019 she was living independently within her home in [place]. She had 2 falls in November 2019 which resulted in evaluation at [facility] due to possible psychosis. She was treated for urinary tract infection at that time. She has not had any resolution of her generalized weakness since that time. She continues to have periods of waxing and waning malaise and "feeling sick". She continues to not be able to pinpoint the problem when asked by her daughter Yessenia. He more worse days are far and few between of late per both the patient and her daughter. She does have periods where her mood will fluctuate throughout the day and she attempts to carry on. She does have a history of d epression but is sensitive to medications. 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 Her daughter obtained heel protectors and this has provided great im provement. They have also been using corn pads but this was stopped after the patient had obtainment of heel protectors. At times she will notice some pressure to the corns when she has use of the heel protectors. She was experiencing several episodes of diarrhea on a daily basis. Her daughter did administer Imodium x1 dose and the patient was without a bowel movement for approximately 4 days. Since that time she is typically having loose stool midday only once daily. This appears to be tolerable for both the patient and her daughter. She continues to have frequent meals throughout the day that are small in quantity. Her daughter had performed an elimination diet and has been slowly adding back and foods to see what have might been contributing to her diarrhea symptoms. The patient's cookies have been added back into her diet which is to her great pleasure. Since the reintroduction of most of the foods thus far there has not been any change in the patient's bowel patterns. She does have history of diverticulosis since his sensitivity to foods. She is presently working with home health physical therapy. Yesterday she achieved 1 of her goals which was to be able to sit up and she actually was out of bed for several minutes in the wheelchair after use of a slide board. Since working with 1 of the physical therapist in regards to counterstrain she has not needed any as needed Tylenol and she has not requested any application of Biofreeze for any discomfort. The patient continues to do exercises while in her bed. During last evaluation she was noted to have orthostasis and her amlodipine dose was reduced to 5 mg daily. The patient continues to report intermittent dizziness. She also reports that she typically feels better when sitting up but when sitting up for periods of time she starts noticing pain to her lower back. Patient has a past medical history of hypertension, coronary artery disease, NH, TIA, diverticulitis, incontinence, depression, gout, peripheral vascular disease, colon polyposis, CABG, hysterectomy. Social History - Living Situation Living arrangement: At home Living Situation: With family (daughter, Yessenia as primary caregiver) Support System: The patient grew up in [place] and in [place]. She was residing independently in [facility] within her home alone prior to moving with her daughter, Yessenia in late October 2019. She has 2 daughters, Latrice and Yessenia. Her daughter Yessenia is overseeing her care and medical management. Medications/Allergies - Medications Home Medications: Ambulatory Orders Medication Instructions Recorded Confirmed Clopidogrel [Plavix] 75 mg PO DAILY 11/14/19 12/19/19 Lisinopril [Zestril] 10 mg PO DAILY 11/14/19 12/19/19 Metoprolol Tartrate [Lopressor] 50 mg PO BID 11/14/19 12/19/19 Nitroglycerin [Nitrostat] 0.4 mg SL Q5MIN PRN MDD x3 11/14/19 12/19/19 Acetaminophen 500 mg PO QID PRN 12/19/19 12/19/19 Ciclopirox/Ure/Camph/Menth/Euc 1 applic TP DAILY MDD apply to 12/19/19 12/19/19 [Ciclopirox 8% Treatment Kit] affected nails Loperamide [Imodium] MDD NTE 8mg/day 01/11/20 Menthol [Biofreeze] MDD per package 01/11/20 Wheat Dextrin [Benefiber] MDD per package 01/11/20 - Allergies Allergies/Adverse Reactions: Allergies Allergy/AdvReac Type Severity Reaction Status Date / Time ciprofloxacin [From Cipro] Allergy Rash Verified 11/14/19 15:05 codeine Allergy Unknown Verified 11/14/19 15:05 diazepam [From Valium] Allergy Nausea Verified 11/14/19 15:05 erythromycin base Allergy Unknown Verified 11/14/19 15:05 lentils Allergy Unknown Verified 11/14/19 15:05 Penicillins Allergy Unknown Verified 11/14/19 14:42 antibiotics Allergy Unknown Uncoded 11/14/19 15:05 antihistamines Allergy Unknown Uncoded 11/14/19 15:05 Review of Systems - Constitutional Constitutional: reports: Fatigue, Weight loss (Patient notes weight loss with last weight at 164 pounds and typically has been in the 200s most of her adult life) - Eyes Eyes: denies: Corrective lenses - Ears, Nose & Throat Ears, Nose & Throat: denies: Hearing loss - Cardiovascular Cardiovascular: reports: Chest pain (Today, patient reports central sternal ch est pain that does not radiate nor go down her extremities. This is a second time that she has reported this complaint. She has not reported any chest pain to her daughter in the intervening time since this area MANUFACTURING TECHNOLOGY ANALYST's last visit.) - Respiratory Respiratory: denies: Cough - Gastrointestinal Gastrointestinal: reports: Diarrhea, Change in bowel habits, Good appetite. denies: Abdominal pain, Constipation, Vomiting - Genitourinary Genitourinary: reports: Incontinence. denies: Dysuria - Musculoskeletal Musculoskeletal: reports: Back pain, Stiffness, Muscle weakness, Assistive devices, Transfer issues - Integumentary Integumentary: reports: Other (Corns to bilateral feet) - Neurological Neurological: reports: General weakness, Dizziness (intermittent). denies: Memory problems - Psychiatric Psychiatric: reports: Depression - Endocrine Endocrine: denies: Diabetes type 2 - Hematologic/Lymphatic Hematologic/Lymphatic: denies: Recurrent infections - All Other Systems All Other Systems: reports: Reviewed and negative Physical Exam - Vital Signs Temperature: 36.1 C Pulse Rate: 52 O2 Saturation: 96 (on RA at rest) Blood Pressure: 129/62 (left wrist cuff) - Physical Exam General Appearance: positive: No acute distress, Alert, Other (sitting up in bed) Eyes Bilateral: positive: Normal inspection ENT: positive: No signs of dehydration Neck: positive: Trachea midline Cardiovascular: positive: No murmur, Bradycardia Respiratory: positive: No respiratory distress, Breath sounds nml (assessed anteriorly) Abdomen: positive: Non-tender, Soft, Nml bowel sounds. negative: Other (bladder nondistended to palpation) Skin: positive: Other (sacru intake; thick enlongaged great toenails consistent with onychomycosis; Resolution of right foot erythema to base of MTP; reduction in corn size to MTP of left 5th toe and corn size to MTP of right 5th toe r emains the same in appearance) Extremities: positive: No pedal edema, Other (stiffness noted to bilateral knees with passive ROM; noted muscular atrophy) Neurologic/Psychiatric: positive: Oriented x3, Mood/affect nml, Weakness, Other (Patient was able to move more independently in bed then last assessment with shifting positions as well as almost sitting up on the edge of the bed Independently.) Comments/Other: sittin/60, HR 103 Left arm MAC 26cm Palliative Care - POLST Patient has POLST: Yes POLST Status: DNR, Selective Treatment Pain: Pain unchanged (knee pain that has improved with counterstrain PT) Nausea: None Anorexia: None Depression: Mild (1-3) Feelings of wellbeing/Perceived Quality of Life: Fair Sleep: Sleeps well Constipation: No Performance Status: The patient is nonambulatory and is bedbound at the present time. She has generalized weakness to his pro bilateral lower extremities. She is performing passive range of motion exercises as well as active range of motion exercises while in the bed. She has history of frequent falls. She is able to self feed. She is incontinent of bowel and bladder. PPS 30% - Palliative Care Discussion: The patient has had a steady functional decline in last 5 years that has significantly increased in the past few months since residing with her daughter. She continues to be bedbound within her daughter's home with her daughter, Yessenia as her primary caregiver. The patient's goal has been to be able to sit up in bed and to this week with physical therapy she was able to sit up in the wheelchair for several minutes. She also wishes to sit up on the edge of the bed several times a day. She continues to have bouts of malaise or "feeling sick" that she is unable to articulate the symptoms further. When these s ymptoms come on it may be during the time that is capable of the daughter assisting the patient to sit on the edge of the bed and the patient declines. However, this is a goal that she wishes to achieve as well as her new goal is to be able to be up in the wheelchair in the living room to look out to the sliding glass doors at the garden and to watch the animals outside.The patient is starting to be optimistic regarding be able to achieve some of her physical goals.When exploring some emotions with the patient and her daughter, Yessenia her daughter reports that this time together has gone quite well and they have build a connection and report that Yessenia did not previously forspage Casas also has a new found respect for her mother and she is obtaining pleasure and gratification from the fact that she is able to provide care and support for her mother to honor her wishes to remain at home with family. Impression and Recommendations - Palliative Care Impression: This is an 84-year-old woman who has had a significant functional decline and loss of mobility remains cognitively intact. There is a potential that she had a CVA that resulted in her current debilitated state however, the patient does not wish for diagnostics or interventions. She has had improvement of her generalized joint discomfort with introduction of counterstrain with physical home health physical therapy. Palliative care to continue to build rapport, establish goals of care, provide symptom management and anticipatory guidance. Recommendations/Counseling Done: 1. Chest pain in setting of CAD with history of NH. On this evaluation and last evaluation with this YOUTH LEADER the patient has reported chest pain that was int ermittent. She has not reported pain to her daughter in the interim between the visits. Unclear if this is GERD related or intermittent angina given the patient's past cardiac history. Discussed if she has chest pain does that resolve may administer nitroglycerin as needed as she has a's within the home and reviewed purpose, and side effects with understanding verbalized. Acid the patient reports chest pain to her daughter Yessenia for potential introduction of a routine vasodilator if symptoms persist. Discussed further evaluation of chest pain given past medical history of NH at a hospital level of care and patient declines with understanding verbalized regarding risk of staying within the home. Continue secondary preventive measures with Plavix and metoprolol. 2. Generalized weakness. Unknown etiology, but likely due to a CVA given the patient's past history of TIAs. Continues to be bedbound but has had progress in working with physical therapy and getting out of bed into a wheelchair this week and she is working on sitting up on the edge of the bed. Discussed with daughter and patient to have daily sessions of sitting up on the edge of the bed worked into the time that she has her daily administration of applesauce that the patient enjoys. Presently the goal is for the patient to be able to be sitting up in the wheelchair to go into the living room and look outside. Home health physical therapy to continue to provide support and patient to continue to do independent exercises within the home. 3.Right great toe bunion and corns to bilateral lateral fifth toes. Longstanding. Resolution of erythema to right great toe bunion. Discussed with daughter and patient for corns may soak feet until the skin is soft and may then use an emery board or pumice stone to file the skin on a routine and then after apply lotion for gradual reduction of corns. Strongly encouraged use of corn pads for protection even while in bed and with use of heel protectors. 4. Dizziness. Multifactorial with noted hypotension on sitting and due to deconditioning. Will discontinue amlodipine and continue to monitor response. Continue to encourage oral hydration throughout the day. 5. Loose stools. Improved. Patient has a history of diverticulosis. Continue Benefiber to bulk stool. Reinforced that may use Imodium if needed to slow peristalsis and water absorption. Continue to encourage oral hydration. CC: Home Health Time Spent: Total time spent 45 minutes with greater than 50% of this spent in counseling and coordination of care with patient and daughter, Yessenia; review of medications; examination of patient; review of symptom management and anticipatory guidance. Disclaimer: The chart note was formulated using voice recognition technology and unfortunately sound alike errors may occur.
== END 2020-02-01 12:29 | disposition home or self-care (01) ==
LOC: PC 12:28
PROVIDERS: ATTEND Nurse Practitioner Family
DX: Z51.5 Encounter for palliative care (principal); R07.9 Chest pain, unspecified; I25.2 Old myocardial infarction; I25.10 Atherosclerotic heart disease of native coronary artery without angina pectoris; R53.81 Other malaise; R53.1 Weakness; R42 Dizziness and giddiness; I95.9 Hypotension, unspecified; R19.7 Diarrhea, unspecified; M21.611 Bunion of right foot; L84 Corns and callosities; R32 Unspecified urinary incontinence; R63.4 Abnormal weight loss; Z79.899 Other long term (current) drug therapy; Z79.02 Long term (current) use of antithrombotics/antiplatelets; Z74.01 Bed confinement status; Z95.1 Presence of aortocoronary bypass graft; Z86.73 Personal history of transient ischemic attack (TIA), and cerebral infarction without residual deficits; Z91.81 History of falling; Z66 Do not resuscitate
CPT/HCPCS: 99349

== ENCOUNTER 2020-03-06 15:20 | Outpatient (CLI) | payer MEDICARE, OTHER ==
--- NOTE | 2020-03-06 16:57 | CONSULTATION NOTE ---
Palliative Care Follow Up - Referral Referring Provider: EDMOND Stewart Time of Visit: 0211-8914 Referral setting: Home Referral Reason: Failure to thrive/ advance care planning - Information Sources Records reviewed: Previous records reviewed History/Review of Systems obtained from: Patient, Family (daughter, Yessenia present) Exam limitations: No limitations - History of Present Illness Update Brief HPI Update: This is an 84-year-old female who was seen and evaluated today in her home with her daughter, Yessenia present for follow-up regarding failure to thrive, left ankle pain and knee pain, and debility. The patient has had a general decline over the last 5 years. Prior to moving in with her daughterYessenia in late October 2019 she was living independently within her home in [place]. She sustained 2 falls in November 2019 [facility]. At the time she was on an SSRI for depression. She was treated for urinary tract infection. She has had generalized weakness since that time without resolution. She is no longer able to ambulate. The patient reports depressive symptoms several days throughout the week. She is adamant that she does not wish to try a different antidepressant as she is sensitive and "nothing worked before." She finds [employer] and interacting with her cat appendectomy as well as watching the birds at the bird feeder at her window. She is essentially bedbound. The patient is looking forward to having her computer being set up that so she can work on her emails and Facebook. She reports a new pain to her left foot and ankle that developed over the last few days. No recent falls or known injury. The patient is having increased difficulty assisting the daughter scooting up in bed. The patient's daughter has a history of chronic lower back pain and is at risk of injury. The patient is presently working with home health physical therapy for strengthening. She typically will sit on the edge of the bed with home health. She was starting to implement this with her daughter but subsequently her goals have shifted. She is reporting right upper quadrant pain that comes and goes. Does not appear to be affected by meals or lack thereof. Overall it does not seem to radiate. There is no pain with coughing. Intermittent pain with movement. She denies any nausea or vomiting. Patient is seen today and her bed with her feet hanging over the edge with her catJeannie present. She is propped up with a wedge and pillows. Patient has a past medical history of hypertension, coronary artery disease, [place], TIA, diverticulitis, incontinence, depression, gout, peripheral vascular disease, colon polyposis, CABG, hysterectomy. Social History - Living Situation Living arrangement: At home Living Situation: With family (daughter, Yessenia as primary caregiver) Support System: The patient grew up in [place] and [place]. She was residing independently in [place], [place] within her home alone prior to moving with her daughter, Yessenia in late October 2019. She has 2 daughters, Latrice and Yessenia. Her daughter Yessenia is overseeing her care and medical management. Yessenia is a mental health specialist. The patient is presently estranged from her daughter Latrice. Medications/Allergies - Medications Home Medications: Ambulatory Orders Medication Instructions Recorded Confirmed Clopidogrel [Plavix] 75 mg PO DAILY 11/14/19 12/19/19 Lisinopril [Zestril] 10 mg PO DAILY 11/14/19 12/19/19 Metoprolol Tartrate [Lopressor] 50 mg PO BID 11/14/19 12/19/19 Nitroglycerin [Nitrostat] 0.4 mg SL Q5MIN PRN MDD x3 11/14/19 12/19/19 Acetaminophen 500 mg PO QID PRN 12/19/19 12/19/19 Ciclopirox/Ure/Camph/Menth/Euc 1 applic TP DAILY MDD apply to 12/19/19 12/19/19 [Ciclopirox 8% Treatment Kit] affected nails Loperamide [Imodium] MDD NTE 8mg/day 01/11/20 Menthol [Biofreeze] MDD per package 01/11/20 Wheat Dextrin [Benefiber] MDD per package 01/11/20 - Allergies Allergies/Adverse Reactions: Allergies Allergy/AdvReac Type Severity Reaction Status Date / Time ciprofloxacin [From Cipro] Allergy Rash Verified 11/14/19 15:05 codeine Allergy Unknown Verified 11/14/19 15:05 diazepam [From Valium] Allergy Nausea Verified 11/14/19 15:05 erythromycin base Allergy Unknown Verified 11/14/19 15:05 lentils Allergy Unknown Verified 11/14/19 15:05 Penicillins Allergy Unknown Verified 11/14/19 14:42 antibiotics Allergy Unknown Uncoded 11/14/19 15:05 antihistamines Allergy Unknown Uncoded 11/14/19 15:05 Review of Systems - Constitutional Constitutional: reports: Fatigue, Weight loss (MAC 25cm RUE) - Eyes Eyes: denies: Corrective lenses - Ears, Nose & Throat Ears, Nose & Throat: denies: Hearing loss - Cardiovascular Cardiovascular: denies: Palpitations, Chest pain (no longer has reports of chest pain) - Respiratory Respiratory: denies: Cough, SOB at rest - Gastrointestinal Gastrointestinal: reports: Abdominal pain (see HPI for additional details), Good appetite. denies: Constipation, Diarrhea, Nausea, Vomiting - Genitourinary Genitourinary: reports: Incontinence. denies: Dysuria, Hematuria - Musculoskeletal Musculoskeletal: reports: Stiffness, Muscle weakness, Joint pain (left knee and left ankle), Transfer issues. denies: Joint swelling - Neurological Neurological: reports: General weakness. denies: Dizziness, Memory problems - Psychiatric Psychiatric: reports: Depression - Endocrine Endocrine: denies: Diabetes type 2 - Hematologic/Lymphatic Hematologic/Lymphatic: denies: Recurrent infections - All Other Systems All Other Systems: reports: Reviewed and negative Physical Exam - Vital Signs Temperature: 36.0 C Pulse Rate: 56 O2 Saturation: 97 (on RA at rest) Blood Pressure: 143/73 (left wrist cuff lying) - Physical Exam General Appearance: positive: No acute distress, Alert, Other (Propped up in bed) Eyes Bilateral: positive: Normal inspection ENT: positive: Other (No signs of dehydration) Neck: positive: Trachea midline Cardiovascular: positive: No murmur, Bradycardia Respiratory: positive: No respiratory distress, Breath sounds nml. negative: Rales Abdomen: positive: Non-tender, Soft, Nml bowel sounds, Other (No HSM). negative: Distended Skin: positive: Dryness. negative: Pressure wound Extremities: positive: No pedal edema, Other (Tenderness to palpation of left lateral aspect of ankle and with dorsiflexion of left foot without discoloration; pain with ROM of left knee without visible swelling or warmth to palpation) Neurologic/Psychiatric: positive: Oriented x3, Weakness, Flat affect Palliative Care - POLST Patient has POLST: Yes POLST Status: DNR, Comfort Measures Pain: Pain worsening (see HPI for additional details) Performance Status: Patient is nonambulatory and is bedbound at this time. She has generalized weakness to her lower extremities. She has had reduction in performing passive range of motion exercises. No recent falls. Able to self feed. She is incontinent of bowel and bladder. PPS 30% - Palliative Care Discussion: Patient's daughter is providing continued sole caregiving support and is not demonstrating any evidence of caregiver burnout. The patient also is having depressive symptoms which she relays "how could you not?" However, she finds solace in her birds and her cat IV. She is adamant that she does not want to trial any additional antidepressant medications due to her past experiences. Previously her goal was to be able to sit in the wheelchair and go into the common area and watch the birds. Subsequently, her goals have shifted and she is desiring to remain in her room in her bed and optimizing her comfort. Presently her main concern is to having her left ankle be more comfortable with the pain to be managed. Impression and Recommendations - Palliative Care Impression: This is an 84-year-old female with a significant functional decline and loss of mobility who remains cognitively intact. She is demonstrating depressive symptoms but is adamant that she does not wish to trial any oral medications. She likely has sustained a sprain to her left ankle with no history of trauma. The patient continues to look forward to her sessions with home health physical therapy for counterstrain. Palliative care to continue to provide symptom management, anticipatory guidance, and establish goals of care. Recommendations/Counseling Done: 1. RUQ pain. Intermittent.Questionable biliary colic pain vs gas pain. Continue to monitor. Patient does not desire interventions outside of the home. 2. Left ankle and knee pain. Underlying arthritis. Likely sustained a sprain to the left ankle trying to provide assistance with repositioning within the bed and no history of trauma. To left knee and ankle apply IcyHot twice daily for pain. Initiate acetaminophen 500 mg 3 times daily for 2 weeks for pain. Do not exceed 3000 mg of Tylenol daily from all sources. Advised daughter to wrap the left ankle with an Juan wrap in the a.m. after applying icy hot to the left eye full and remove in the p.m. Uses for 7 days for support. Advised to have further up in the bed and not have her heels floating off the bed due to a lack of support. 3. Generalized weakness. Unknown etiology, likely due to a CVA given the patient's past history of TIAs. Patient continues to be bedbound. Continue to work with physical therapy with counterstrain. At this point given the patient's progress with physical therapy unlikely that she will be mobile in the future and this was relayed to the patient's daughter. Presently the new goal is for the patient to be comfortable in her room and in her bed. Home health physical therapy to continue breath support for the patient. 4. Depression. Underlying depressive symptoms due to circumstances, isolation, and physical deconditioning. Discussed with patient and daughter in regards to trialing a new antidepressant therapy patient adamantly declines. She feels that she is able to manage her symptoms by interacting with her cat as well as watching birds that give her quite a large amount of pleasure. She is afraid of adverse side effects given her previous experiences. Supportive listening provided and continue to monitor moving forward. 5. Advanced care planning. Patient does not desire intensive work-up. She wishes to remain at home and to be comfortable. Presently she has plateaued in her overall general decline. Discussed with the patient's daughter in regards to hospice qualifications and what that would look like in the future. At the present time palliative care will continue to provide support for the patient and daughter and hold in place until a transition to hospice is appropriate. CC: Home Health Time Spent: F/u in 6- 8weeks or sooner if new/worsening symptoms. Total time spent 60 minutes with greater than 50% of this spent in counseling and coordination of care with patient and daughter, Yessenia; examination of patient; review of hospice philosophy; review of pain and symptom management and anticipatory guidance. Disclaimer: The chart note was formulated using voice recognition technology and unfortunately sound alike errors may occur.
== END 2020-03-06 15:21 | disposition home or self-care (01) ==
LOC: PC 15:20
PROVIDERS: ATTEND Nurse Practitioner Family
DX: Z51.5 Encounter for palliative care (principal); R10.11 Right upper quadrant pain; M25.572 Pain in left ankle and joints of left foot; M25.562 Pain in left knee; R53.1 Weakness; G89.29 Other chronic pain; F32.9 Major depressive disorder, single episode, unspecified; Z79.899 Other long term (current) drug therapy; Z91.81 History of falling; Z74.01 Bed confinement status; Z66 Do not resuscitate
CPT/HCPCS: 99350